=== PATIENT | female | born 1955 | race Caucasian/White ===

== ENCOUNTER 2017-06-22 13:15 | Outpatient (CLI) ==
[2015-10-16 12:41] VITALS: BMI 28.2
--- NOTE | 2017-06-23 11:10 | MAMMO ---
EXAM: Bilateral digital screening mammogram History: Screening. Comparison: Bilateral mammogram 02/09/2015 Findings: MLO and CC views of bilateral breasts demonstrate scattered fibroglandular breast parench yma. There are no dominant masses, no suspicious microcalcifications and no architectural distortio ns Impression: Negative mammogram with no significant interval change. Recommend followup routine scre ening mammography in 1 year. BIRADS 1
== END 2017-06-22 13:16 | disposition home or self-care (01) ==
LOC: RAD 13:15
PROVIDERS: ATTEND Family Medicine
DX: Z12.31 Encounter for screening mammogram for malignant neoplasm of breast (principal)
CPT/HCPCS: 77067

== ENCOUNTER 2018-02-13 13:11 | Emergency (ER) ==
[2018-02-13 13:24] VITALS: BP 157/89; TEMP 99.4; BMI 32.3
--- NOTE | 2018-02-13 14:14 | ED.PDOC ---
General ED Provider: Dr. KAZ CHEUNG Chief Complaint: Earache Stated Complaint: EAR AND NECK PAIN. Has been treated with Keflex for rt ear infection X 1 week. Today symptoms seemed worse with pain shooting into her rt anterior neck. Sent to ER by Dr Chaudhry office Time Seen by Physician: 13:40 Mode of Arrival: Walk-In Information Source: Patient Exam Limitations: No limitations Primary Care Provider: CHANDAN CHAUDHRY Nursing and Triage Documentation Reviewed and Agree: Yes Reviewed sepsis parameters & appropriate labs ordered?: Yes System Inflammatory Response Syndrome: Not Applicable Sepsis Protocol: For patient's 13 years and over: Temp is 96.8 and below OR 101 and greater Pulse >90 BPM Resp >20/minute Acutely Altered Mental Status Are patient's symptoms suggestive of a new infection, such as: -Pneumonia -Skin, Soft Tissue -Endocarditis -UTI -Bone, Joint Infection -Implantable Device -Acute Abdominal Infection -Wound Infection -Meningitis -Blood Stream Catheter Infection -Unknown System Inflammatory Response Syndrome: Not Applicable EENT Complaint Exam - Ear Complaint/Exam Symptoms Are: Still present Timing: Constant Initial Severity: Severe Current Severity: Moderate Character: Reports: Sharp pain, Dull pain ( ) Aggravating: Reports: None Alleviating: Reports: OTC Meds Associated Signs and Symptoms: Reports: Foreign body sensation. Denies: Ear trauma, Ear swelling, Discharge, Fever, Hearing loss, Bleeding, Sore throat, Headache, URI symptoms, Rash, Pain to external ear, Pain to external face Ear Surgical History: None Vesicles to External Pinna: No Vesicles to Tragus: No TMJ Tenderness: None Mastoid Tenderness: None Tragal Tenderness: None External Canal: Normal Tympanic Membrane: Bulging, Dullness Differential Diagnoses: Serous Otitis Review of Systems - Review Of Systems Constitutional: Reports: No symptoms Eyes: Reports: No symptoms Ears, Nose, Mouth, Throat: Reports: No symptoms, Ear pain Respiratory: Reports: No symptoms Cardiac: Reports: No symptoms GI: Reports: No symptoms : Reports: No symptoms Musculoskeletal: Reports: No symptoms Skin: Reports: No symptoms Neurological: Reports: No symptoms Endocrine: Reports: No symptoms Hematologic/Lymphatic: Reports: No symptoms All Other Systems: Reviewed and Negative Past Medical History - Past Medical History Previously Healthy: Yes Endocrine: Reports: None Cardiovascular: Reports: None Respiratory: Reports: None Hematological: Reports: None Gastrointestinal: Reports: None Genitourinary: Reports: None Neuro/Psych: Reports: None Musculoskeletal: Reports: None, Other (sjogrens syndrome) Cancer: Reports: None Last Menstrual Period: unknown - Surgical History General Surgical History: Reports: None - Family History Family History: Reports: None - Social History Smoking Status: Current every day smoker Hx Substance Use: No Alcohol Screening: Occasionally Physical Exam - Physical Exam Appearance: Well-appearing, No pain distress, Well-nourished Ill-appearing: Mild Pain Distress: Mild Eyes: PAULIE, EOMI, Conjunctiva clear ENT: Ears normal (RT TM partially retracted), Nose normal, Oropharynx normal Neck: Supple (Positive shotty Rt cervical lymphadenopathy) Respiratory: Airway patent, Breath sounds clear, Breath sounds equal, Respirations nonlabored Cardiovascular: RRR, Pulses normal, No rub, No murmur GI/: Soft, Nontender, No masses, Bowel sounds normal, No Organomegaly Musculoskeletal: Normal strength, ROM intact, No edema, No calf tenderness Skin: Warm, Dry, Normal color Neurological: Sensation intact, Motor intact, Reflexes intact, Cranial nerves intact, Alert, Oriented Psychiatric: Affect appropriate, Mood appropriate Critical Care Note - Critical Care Note Total Time (mins): 0 Course - Course Hematology/Chemistry: 02/13/18 14:20 02/13/18 14:20 Vital Signs: Temp Pulse Resp BP Pulse Ox 02/13/18 13:12 99.4 F 78 20 157/89 H 95 Departure - Departure Time of Disposition: 16:10 Disposition: HOME SELF-CARE Discharge Problem: Serous labyrinthitis of right ear, Sphenoid sinusitis, Ethmoid sinusitis, Maxillary sinusitis, Cervical lymphadenopathy Instructions: Sinusitis (ED), Adenitis (ED), Serous Otitis Media (ED) Condition: Good Pt referred to PMD for follow-up: Yes (follow up 2 weeks) IPMP verified?: No Additional Instructions: Take antibiotics as directed Take Prednisone as directed. Seek follow up care with PCP in 2 weeks Allergies/Adverse Reactions: Allergies NSAIDS (Non-Steroidal Anti-Inflamma Adverse Reaction (Verified 10/16/15 12:57) Hives vomits when takes ibuprofen Home Medications: Ambulatory Orders Hydrocodone/Acetaminophen [[place] 10-325 Tablet] 1 each PO Q6HR PRN #12 tablet Amoxicillin/Potassium Clav [Augmentin 875-125 Tablet] 1 each PO BID #20 tablet 02/13/18 Prednisone 10 mg PO DAILY #30 tab 02/13/18 Disposition Discussed With: Patient
--- NOTE | 2018-02-13 15:55 | CT ---
Exam: CT soft tissue neck without intravenous contrast followed by CT soft tissue neck with intraven ous contrast. Comparison: None available. Reason for exam: Pain in sub tonsillar region. FINDINGS: No displaced facial fractures are seen. Air-fluid levels and mucosal thickening are seen in the ethmoid, sphenoid and maxillary sinuses. The frontal sinuses appear normally pneumatized. No inflammatory changes are seen in the intraconal spaces. No discrete fluid collection or soft tiss ue asymmetry is seen in the aerodigestive tract. The parotid, submandibular, and thyroid gland appears grossly unremarkable. No pneumothorax is seen in the partially imaged lung apices. Mildly prominent appearing cervical and paracervical chain lymph nodes are seen in the soft tissues o f the neck. The temporomandibular joint spaces are symmetric. The zygomatic arches are unremarkable. Degenerative disease is seen in the cervical spine with anterior cervical discectomy and fusion rufus ing C5-C7 without evidence of hardware complication. Impression: 1. Inflammatory changes with air fluid levels in the maxillary, sphenoid and ethmoid sinuses. Imagin g findings are consistent with sinus disease. 2. No discrete contrast enhancing mass lesion or fluid collection is seen in the peritonsillar regio n or aerodigestive tract. If clinical concern exists, direct visualization may be performed for furt her evaluation. 3. Prominent appearing cervical and paracervical chain lymph nodes are likely reactive. Report faxed at 1550 hours on 02/13/2018.
== END 2018-02-13 16:37 | disposition home or self-care (01) ==
LOC: ED 13:11
DX: H83.01 Labyrinthitis, right ear (principal); J32.3 Chronic sphenoidal sinusitis; J32.2 Chronic ethmoidal sinusitis; J32.0 Chronic maxillary sinusitis; R59.0 Localized enlarged lymph nodes
CPT/HCPCS: 36415; 80053; 85025; 85651; 99283

== ENCOUNTER 2018-05-17 08:23 | Outpatient (CLI) ==
--- NOTE | 2018-05-17 09:30 | DI ---
EXAM: Two views of the right knee HISTORY: Osteoarthritis. COMPARISON: None FINDINGS: There is no cortical irregularity or displaced fracture of the right knee. The lateral com partments of the right knee demonstrate mild osteophyte formation. The medial compartment is normal. The patella is normal in position and appearance. There is no lytic or blastic lesion. The soft t issues are unremarkable. There is no knee effusion. IMPRESSION: 1. No acute abnormality or displaced fracture of the right knee. 2. Degenerative change most pronounced in the lateral compartment.
== END 2018-05-17 08:24 | disposition home or self-care (01) ==
LOC: RAD 08:23
PROVIDERS: ATTEND Family Medicine
DX: M17.0 Bilateral primary osteoarthritis of knee (principal)

== ENCOUNTER 2018-12-21 07:09 | Emergency (ER) ==
[2018-12-21 07:09] VITALS: BMI 32.3
[2018-12-21 07:16] VITALS: TEMP 98.5
--- NOTE | 2018-12-21 09:23 | CT ---
EXAM: CT of the head without contrast History: Left-sided facial droop, Sjogren's syndrome. Comparison: Brain MRI 01/07/2016 Technique: Multiplanar CT images through the head were obtained without the administration of IV con trast Findings: Moderate mucosal thickening of the paranasal sinuses. Mastoid air cells are clear in gene ral. No acute calvarial abnormalities. Intracranially the ventricular and cisternal spaces are normal in size, shape and configuration for a patient of this age. No midline shift and no hydrocephalus. No acute intracranial hemorrhage or ab normal extraaxial fluid collections. No change in the benign 2.1 cm right frontal meningioma. Impression: 1. No acute intracranial process. 2. Stable benign right frontal meningioma. 3. Moderate sinusitis
--- NOTE | 2018-12-21 09:33 | CT ---
EXAM: CTA neck HISTORY: Facial numbness, history of Sjogren's disease. TECHNIQUE: CTA neck with intravenous contrast. Multiplanar images were provided. 3-D reconstructio ns. 125 ml Omnipaque. FINDINGS: Compared to 02/13/2018. Unenhanced images were not provided with this systemic arterial CT angiogram which may limit the eval uation. There is no stenosis at the origins of the great vessels. The common carotid arteries prope r appear normal. There is no stenosis at the carotid bulbs or proximal internal carotid arteries. T he more superior cervical internal carotid arteries appear normal as did the bilateral external carot id arteries. There is no evidence of stenosis at the origin of the vertebral arteries. The vertebra l arteries are patent with the left artery dominant. There is no arterial intimal dissection seen. The oropharyngeal structures have symmetric anatomy. The salivary glands have normal size and symmet ry. The tonsillar contours and epiglottis appear normal. There is no cervical lymphadenopathy sugge sted. Bones reveal anterior stabilization hardware of the [id number] cervical spine. The visualiz ed paranasal sinuses have moderately severe mucosal thickening and opacification. Mastoid air cells are aerated. Upper lung smyth are clear IMPRESSION: 1. Relative diminutive caliber of the right vertebral artery with the left artery dominant. The art erial vessels of the neck were otherwise of markable. 2. Moderately severe chronic paranasal sinusitis.
[2018-12-21 09:53] VITALS: BP 155/77
--- NOTE | 2018-12-21 09:55 | ED.PDOC ---
General ED Provider: Dr. ERIN GRAVES Chief Complaint: Non-specific Complaint Stated Complaint: facial numbness, slight facial drooping left lip history of SOJGRAN'S disease on presentation no motor weakness noted Time Seen by Physician: 07:15 Mode of Arrival: Walk-In Information Source: Patient Exam Limitations: No limitations Primary Care Provider: CHANDAN PIMENTEL Nursing and Triage Documentation Reviewed and Agree: Yes Does patient meet sepsis criteria?: No System Inflammatory Response Syndrome: Not Applicable Sepsis Protocol: For patient's 13 years and over: Temp is 96.8 and below OR 101 and greater Pulse >90 BPM Resp >20/minute Acutely Altered Mental Status Are patient's symptoms suggestive of a new infection, such as: -Pneumonia -Skin, Soft Tissue -Endocarditis -UTI -Bone, Joint Infection -Implantable Device -Acute Abdominal Infection -Wound Infection -Meningitis -Blood Stream Catheter Infection -Unknown Miscellaneous Complaint Exam - Complex/Multi-System Complaint/Exam Onset/Duration: facial numbness and some drooping of the left lip Symptoms Are: Still present Episodes Lasting: Days (5) Initial Severity: Mild Current Severity: None Location of Pain: no pain Pain Radiates to: no pain Associated Signs and Symptoms: Denies: Decreased responsiveness, Confusion, Agitation, Dizziness, Weakness (no motor issues pt walked to bath room multiple times ), Syncope, Headache, Short of air, Cough, Wheezing, Hemoptysis, Chest pain, Palpitations, Edema, Nausea, Vomiting, Diarrhea, Abdominal pain, Back pain , Dysuria, Hematemesis, Melena, Decreased oral intake, Fever, Diaphoresis, Immunocompromised, Anticoagulation Therapy, Recent medication changes, Indwelling medical imaging technician, Prior MRSA, Prior VRE, Recent trauma, Remote trauma Recent Echo/LV Function: No Respiratory Distress: None JVD Present: No Tachypnea Present: No Stridor Present: No Abdominal Findings: Present: Normal findings Glascow Coma Scale (see protocol): 15 Meningeal Signs Positive: No Focal Weakness: Present: None Focal Sensory Loss: Present: None Gait: Normal Gag Reflex Present: No Babinski Sign: Negative Right, Negative Left Skin Findings: Present: Normal findings Joint Swelling Present: No In-Dwelling Device Present: No Differential Diagnosis: Other (carotid artery dissection) Quality Indicators for Cardiac Chest Pain: EKG in 10min. Quality Indicators for AMI: EKG in 10min. Quality Indicator For Non-Traumatic Chest Pain/Syncope: EKG Performed Review of Systems - Review Of Systems Constitutional: Reports: No symptoms Eyes: Reports: No symptoms Ears, Nose, Mouth, Throat: Reports: No symptoms Respiratory: Reports: No symptoms Cardiac: Reports: No symptoms GI: Reports: No symptoms : Reports: No symptoms Musculoskeletal: Reports: No symptoms Skin: Reports: No symptoms Neurological: Reports: No symptoms Endocrine: Reports: No symptoms Hematologic/Lymphatic: Reports: No symptoms All Other Systems: Reviewed and Negative Past Medical History - Past Medical History Previously Healthy: Yes Endocrine: Reports: None Cardiovascular: Reports: None Respiratory: Reports: None Hematological: Reports: None Gastrointestinal: Reports: None Genitourinary: Reports: None Neuro/Psych: Reports: None Musculoskeletal: Reports: None, Other (sjogrens syndrome) Cancer: Reports: None Last Menstrual Period: n/a - Surgical History General Surgical History: Reports: None - Family History Family History: Reports: None - Social History Smoking Status: Current every day smoker Hx Substance Use: No Alcohol Screening: Occasionally Physical Exam - Physical Exam Appearance: Well-appearing, No pain distress, Well-nourished Eyes: PAULIE, EOMI, Conjunctiva clear ENT: Ears normal, Nose normal, Oropharynx normal Respiratory: Airway patent, Breath sounds clear, Breath sounds equal, Respirations nonlabored Cardiovascular: RRR, Pulses normal, No rub, No murmur GI/: Soft, Nontender, No masses, Bowel sounds normal, No Organomegaly Musculoskeletal: Normal strength, ROM intact, No edema, No calf tenderness Skin: Warm, Dry, Normal color Neurological: Sensation intact, Motor intact, Reflexes intact, Cranial nerves intact, Alert, Oriented Psychiatric: Affect appropriate, Mood appropriate Interpretation - Radiology Interpretation Radiology Interpretation By: Radiologist Radiology Results: No acute changes Re-Evaluation - Re-Evaluation Time of Re-Evaluation: 08:00 Status: Improved Vital Signs Stable: Yes Pain Level: 0 Appearance: NAD Lungs: Clear Skin: Warm and Dry Neuro: Alert and Oriented X3 CV: RRR - Re-Evaluation Time of Re-Evaluation: 09:58 Status: Improved Vital Signs Stable: Yes Pain Level: 0 Appearance: NAD Skin: Warm and Dry Neuro: Alert and Oriented X3 CV: RRR Additional Comments: MRI NOT AVILABLE TODAY AT [facility] AFTER DISCUSSION WITH [facility] . Physician Notification - Case Discussed Physician Notified: HOWARD MANDEL Time of Notification: 09:30 (STATED TO SPEAK TO NEUROLOGY AND DID STATED FROM SOGRANS DISEASE STAND POINT THE CAROTID ARTERY IS NOT THE ISSUE) Physician Notified: RASHEEDA(NEUROLOGY/[facility]) Time of Notification: 10:00 (STATED OBTAIN MRI OF THE BRAIN / MRA ) Critical Care Note - Critical Care Note Total Time (mins): 0 Course - Course Hematology/Chemistry: 12/21/18 08:05 12/21/18 08:05 Orders, Labs, Meds: Lab Review 12/21/18 12/21/18 08:05 08:05 WBC 8.97 RBC 4.91 Hgb 13.5 Hct 41.2 MCV 83.9 MCH 27.5 MCHC 32.8 RDW Coeff of Wally 13.2 Plt Count 288 Immature Gran % (Auto) 0.7 Neut % (Auto) 58.9 Lymph % (Auto) 29.2 [place] % (Auto) 5.4 Eos % (Auto) 5.0 Baso % (Auto) 0.8 Immature Gran # (Auto) 0.1 Neut # (Auto) 5.3 Lymph # (Auto) 2.6 [place] # (Auto) 0.5 Eos # (Auto) 0.5 Baso # (Auto) 0.1 Sodium 140.3 Potassium 4.56 Chloride 100.5 Carbon Dioxide 28.3 Anion Gap 16.06 BUN 21.7 H Creatinine 0.72 Estimated GFR (MDRD) 82.00 BUN/Creatinine Ratio 30.13 Glucose 116.7 H Calcium 9.67 Total Bilirubin 0.35 AST 20.0 ALT 23.4 Alkaline Phosphatase 84.1 Total Protein 8.26 H Albumin 4.75 Globulin 3.51 Albumin/Globulin Ratio 1.35 Orders Category Date Time Status EKG-(ED ONLY) Stat CARDIO 12/21/18 07:49 Completed NPO REMINDER: IMAGING ONCE CARE 12/21/18 07:51 Completed CBC W/ AUTO DIFF Stat LAB 12/21/18 08:05 Completed COMPREHENSIVE METABOLIC PANEL Stat LAB 12/21/18 08:[address] HEAD W/O CONTRAST Stat RADS 12/21/18 07:51 Completed CTA ANGIO NECK Stat RADS 12/21/18 07:49 Completed Vital Signs: Temp Pulse Resp BP Pulse Ox 12/21/18 07:09 98.5 F 79 20 175/83 H 99 Departure - Departure Time of Disposition: 10:02 Disposition: HOME SELF-CARE Discharge Problem: Left facial numbness Instructions: Paresthesia (ED) Condition: Good Pt referred to PMD for follow-up: Yes IPMP verified?: No Additional Instructions: Please call your Family Physician as soon as possible to schedule a follow-up appointment. I SPOKE TO YOUR DOCTOR AND THE NEUROLOGIST COMB FIXER. THE NEUROLOGIST STATED THAT YOU COULD BENFIT FROM THE MRI OF THE BRAIN. DOES NOT THINK THAT YOUR AT RISK FOR CAROTID ARTERY DISSECTION OR STROKES RELATED TO THE SOJGREN'S . IF YOU HAVE THE FOLLOWING DO NOT WAIT SEEK EMERGENCY HELP SOON POSSIBLE. 1) UNABLE TO WALK WEAK IN ARMS LEGS, CANT TALK , EAT, OR VISION RELATED ISSUES THERE MAY BE IMPENDING STROKE SYMPTOMS Allergies/Adverse Reactions: Allergies egg Allergy (Severe, Verified 12/21/18 07:17) Itching unknown. feathers Allergy (Severe, Verified 12/21/18 07:17) Itching unknown. mold Allergy (Severe, Verified 12/21/18 07:17) Itching unknown. NSAIDS (Non-Steroidal Anti-Inflamma Adverse Reaction (Verified 12/21/18 07:17) Hives vomits when takes ibuprofen dust Allergy (Severe, Uncoded 12/21/18 07:17) Nasal Congestion unknown. food additives Allergy (Severe, Uncoded 12/21/18 07:17) Diarrhea unknown. Home Medications: Ambulatory Orders Hydrocodone/Acetaminophen [[place] 5-325 Tablet] 1 each PO TID 10/02/18 Pantoprazole Sodium [Protonix] 20 mg PO BID 10/02/18 Cyclobenzaprine HCl [Flexeril] 5 mg PO DIRECTED PRN 12/21/18
[2018-12-21] MEDS ORDERED: DECADRON 4 MG/ML SDV IM STA (10:22)
== END 2018-12-21 10:50 | disposition home or self-care (01) ==
LOC: ED 07:09
DX: R29.810 Facial weakness (principal); R20.0 Anesthesia of skin; M35.00 Sjogren syndrome, unspecified; F17.210 Nicotine dependence, cigarettes, uncomplicated
CPT/HCPCS: 36415; 80053; 85025; 93005; 93010; 96374; 99284

== ENCOUNTER 2019-02-10 08:45 | Emergency (ER) | payer OTHER ==
[2019-02-10 08:54] VITALS: BP 147/80; TEMP 97.6; BMI 32.1
[2019-02-10] MEDS ORDERED: SOLU-MEDROL 125 MG IM STA (09:27)
--- NOTE | 2019-02-10 09:40 | ED.PDOC ---
General ED Provider: Dr. ALDEN GODFREY Chief Complaint: Non-specific Complaint Stated Complaint: Patient is a 63 year old female who comes to the ER with compalints of chornic left facial pain. She was seen recently and given a referal for Neurology which she has not yet seen. She states that her pain is not better with hydrocodoen and had previously reponded to steroids. Time Seen by Physician: 09:40 Mode of Arrival: Walk-In Information Source: Patient Nursing and Triage Documentation Reviewed and Agree: Yes Does patient meet sepsis criteria?: No System Inflammatory Response Syndrome: Not Applicable Sepsis Protocol: For patient's 13 years and over: Temp is 96.8 and below OR 101 and greater Pulse >90 BPM Resp >20/minute Acutely Altered Mental Status Are patient's symptoms suggestive of a new infection, such as: -Pneumonia -Skin, Soft Tissue -Endocarditis -UTI -Bone, Joint Infection -Implantable Device -Acute Abdominal Infection -Wound Infection -Meningitis -Blood Stream Catheter Infection -Unknown Review of Systems - Review Of Systems Constitutional: Reports: No symptoms Eyes: Reports: No symptoms Ears, Nose, Mouth, Throat: Reports: Ear pain (Left ), Mouth pain (left ) Respiratory: Reports: No symptoms Cardiac: Reports: No symptoms GI: Reports: No symptoms : Reports: No symptoms Musculoskeletal: Reports: No symptoms Skin: Reports: No symptoms Neurological: Reports: No symptoms Endocrine: Reports: No symptoms Hematologic/Lymphatic: Reports: No symptoms All Other Systems: Reviewed and Negative Past Medical History - Past Medical History Previously Healthy: Yes Endocrine: Reports: Dyslipidemia Cardiovascular: Reports: None Respiratory: Reports: None Hematological: Reports: None Gastrointestinal: Reports: GERD, Other (Curtis's esophagus) Genitourinary: Reports: None Neuro/Psych: Reports: None Musculoskeletal: Reports: Joint Pain, Other (sjogrens syndrome) Cancer: Reports: None Last Menstrual Period: n/a - Surgical History General Surgical History: Reports: None - Family History Family History: Reports: None - Social History Smoking Status: Current every day smoker Hx Substance Use: No Alcohol Screening: Occasionally Physical Exam - Physical Exam Appearance: Ill-appearing Ill-appearing: Mild Pain Distress: Severe Eyes: PAULIE, EOMI ENT: Ears normal, Nose normal Neck: Supple Respiratory: Airway patent, Breath sounds clear, Breath sounds equal, Respirations nonlabored Cardiovascular: RRR, Pulses normal, No rub, No murmur Skin: Warm, Dry Neurological: Sensation intact, Motor intact, Alert, Oriented Psychiatric: Anxious Critical Care Note - Critical Care Note Total Time (mins): 0 Course - Course Orders, Labs, Meds: Orders Category Date Time Status Methylprednisolone Sod Succ/Pf [Solu-Medrol 125 mg] MEDS 02/10/19 09:27 Discontinued 125 mg IM ONCE STA Medications Discontinued Medications Generic Name Dose Route Start Last Admin Trade Name Afshin PRN Reason Stop Dose Admin Methylprednisolone Sodium Succinate 125 mg 02/10/19 09:27 02/10/19 09:35 Solu-Medrol 125 Mg IM 02/10/19 09:28 125 mg ONCE STA Administration Vital Signs: Temp Pulse Resp BP Pulse Ox 02/10/19 08:47 97.6 F 74 20 147/80 H 98 Departure - Departure Time of Disposition: 09:43 Disposition: HOME SELF-CARE Discharge Problem: Chronic facial pain Instructions: Atypical Facial Pain (ED) Condition: Fair Pt referred to PMD for follow-up: Yes IPMP verified?: No Additional Instructions: Take steroids as prescribed continue home pain medications Follow up with PCP and neurologist as soon as possible. Prescriptions: Prednisone 20 mg PO DAILYWM #5 tablet Allergies/Adverse Reactions: Allergies egg Allergy (Severe, Verified 12/21/18 07:17) Itching unknown. feathers Allergy (Severe, Verified 12/21/18 07:17) Itching unknown. mold Allergy (Severe, Verified 12/21/18 07:17) Itching unknown. NSAIDS (Non-Steroidal Anti-Inflamma Adverse Reaction (Verified 12/21/18 07:17) Hives vomits when takes ibuprofen Sulfa (Sulfonamide Antibiotics) Adverse Reaction (Verified 02/10/19 08:52) dust Allergy (Severe, Uncoded 12/21/18 07:17) Nasal Congestion unknown. food additives Allergy (Severe, Uncoded 12/21/18 07:17) Diarrhea unknown. Home Medications: Ambulatory Orders Hydrocodone/Acetaminophen [[place] 5-325 Tablet] 1 each PO TID 10/02/18 Pantoprazole Sodium [Protonix] 20 mg PO BID 10/02/18 Prednisone 20 mg PO DAILYWM #5 tablet 02/10/19
== END 2019-02-10 10:03 | disposition home or self-care (01) ==
LOC: ED 08:45
DX: G50.1 Atypical facial pain (principal); H92.02 Otalgia, left ear; K13.79 Other lesions of oral mucosa; Z72.0 Tobacco use; F41.8 Other specified anxiety disorders
CPT/HCPCS: 96372; 99283

== ENCOUNTER 2019-03-31 10:47 | Emergency (ER) | payer OTHER ==
[2019-03-31 10:56] VITALS: BP 154/82; TEMP 98.2; BMI 32.1
--- NOTE | 2019-03-31 12:27 | ED.PDOC ---
General ED Provider: Dr. LEO PRICE Chief Complaint: Back Pain Stated Complaint: Back pain - told RN wants prednisone - has helped before. On exam by me patient says Prednisone 20 daily for 5 days helps. Last was in January Time Seen by Physician: 12:17 Mode of Arrival: Wheelchair Information Source: Patient Primary Care Provider: CHANDAN PIMENTEL Nursing and Triage Documentation Reviewed and Agree: Yes Does patient meet sepsis criteria?: No System Inflammatory Response Syndrome: Not Applicable Sepsis Protocol: For patient's 13 years and over: Temp is 96.8 and below OR 101 and greater Pulse >90 BPM Resp >20/minute Acutely Altered Mental Status Are patient's symptoms suggestive of a new infection, such as: -Pneumonia -Skin, Soft Tissue -Endocarditis -UTI -Bone, Joint Infection -Implantable Device -Acute Abdominal Infection -Wound Infection -Meningitis -Blood Stream Catheter Infection -Unknown Review of Systems - Review Of Systems Constitutional: Reports: No symptoms Respiratory: Reports: No symptoms Cardiac: Reports: No symptoms GI: Reports: No symptoms Musculoskeletal: Reports: Back pain (goes down from lower back on right side to thigh and knee; no change - chronic) All Other Systems: Reviewed and Negative Past Medical History - Past Medical History Previously Healthy: Yes Endocrine: Reports: Dyslipidemia Cardiovascular: Reports: None Respiratory: Reports: None Hematological: Reports: None Gastrointestinal: Reports: GERD, Other (Curtis's esophagus) Genitourinary: Reports: None Neuro/Psych: Reports: None Musculoskeletal: Reports: Joint Pain, Other (sjogrens syndrome) Cancer: Reports: None Last Menstrual Period: none - Surgical History General Surgical History: Reports: None - Family History Family History: Reports: None - Social History Smoking Status: Current every day smoker Hx Substance Use: No Alcohol Screening: Occasionally - Immunizations Tetanus Shot up to Date: Yes Physical Exam - Physical Exam Appearance: Well-appearing Pain Distress: Mild Eyes: PAULIE, EOMI, Conjunctiva clear ENT: Oropharynx normal Neck: Supple Respiratory: Airway patent, Breath sounds clear, Breath sounds equal Cardiovascular: RRR, Pulses normal GI/: Soft, Nontender Musculoskeletal: Normal strength, ROM intact Skin: Warm, Dry, Normal color Neurological: Alert, Oriented Psychiatric: Affect appropriate, Mood appropriate Critical Care Note - Critical Care Note Total Time (mins): 10 Course - Course Vital Signs: Temp Pulse Resp BP Pulse Ox 03/31/19 10:47 98.2 F 80 20 154/82 H 98 Departure - Departure Time of Disposition: 12:30 Disposition: HOME SELF-CARE Discharge Problem: Low back pain Qualifiers: Chronicity: chronic Back pain laterality: right Sciatica presence: with sciatica Sciatica laterality: sciatica of right side Qualified Code(s): M54.41 - Lumbago with sciatica, right side Instructions: Chronic Back Pain (DC) Condition: Stable Pt referred to PMD for follow-up: Yes (Follow up as planned 24 April) IPMP verified?: No (No CS prescribed) Additional Instructions: Take prednisone as prescribed; follow up with provider as scheduled on 24 April Prescriptions: Prednisone 20 mg PO DAILYWM #5 tablet Allergies/Adverse Reactions: Allergies egg Allergy (Severe, Verified 03/31/19 12:23) Itching unknown. feathers Allergy (Severe, Verified 03/31/19 12:23) Itching unknown. mold Allergy (Severe, Verified 03/31/19 12:23) Itching unknown. NSAIDS (Non-Steroidal Anti-Inflamma Adverse Reaction (Verified 03/31/19 12:23) Hives vomits when takes ibuprofen Sulfa (Sulfonamide Antibiotics) Adverse Reaction (Verified 03/31/19 12:23) dust Allergy (Severe, Uncoded 12/21/18 07:17) Nasal Congestion unknown. food additives Allergy (Severe, Uncoded 12/21/18 07:17) Diarrhea unknown. Home Medications: Ambulatory Orders Hydrocodone/Acetaminophen [Lynch 5-325 Tablet] 1 each PO TID 10/02/18 Pantoprazole Sodium [Protonix] 20 mg PO BID 10/02/18 Prednisone 20 mg PO DAILYWM #5 tablet 02/10/19 Prednisone 20 mg PO DAILYWM #5 tablet 03/31/19
== END 2019-03-31 12:47 | disposition home or self-care (01) ==
LOC: ED 10:47
DX: M54.41 Lumbago with sciatica, right side (principal)
CPT/HCPCS: 99283